=== PATIENT | female | born 1950 | race Caucasian/White ===

== ENCOUNTER 2017-05-05 09:28 | Observation (INO) ==
[2017-05-05] MEDS ORDERED: GI COCKTAIL 30 ML PO ONE (10:48)
[2017-05-05] MEDS ORDERED: NS 1,000 ML IV ONE (10:48)
[2017-05-05] MEDS ORDERED: KETOROLAC 30 MG/ML INJECTION IVP ONE (10:48)
[2017-05-05] MEDS: SALINE FLUSH 10ml SYRINGE IVF PRN ×3 (11:02→14:32)
[2017-05-05] MEDS ORDERED: IOHEXOL 300mg/ml 100ml INJECTION ONE (11:27)
[2017-05-05] MEDS ORDERED: NS 100 ML ONE (11:28)
[2017-05-05] MEDS ORDERED: SALINE FLUSH 10ml SYRINGE ONE ×2 (11:28→15:57)
[2017-05-05] MEDS ORDERED: HYDRALAZINE 20 MG/ML INJECTION IVP ONE (11:29)
[2017-05-05] MEDS ORDERED: METHYLPREDNISOLONE SOD SUCC 125mg/2ml INJECTION IVP ONE (11:34)
[2017-05-05] MEDS ORDERED: DiphenhydrAMINE 50 MG/ML INJECTION IVP ONE (11:35)
[2017-05-05] MEDS ORDERED: ONDANSETRON 4 MG/2 ML INJECTION IVP ONE (12:20)
--- NOTE | 2017-05-05 12:43 | CT Scan Report ---
Indication: Epigastric abdominal pain PROCEDURE: CT abdomen pelvis w con: Encounter: Initial Comparison: None Technique: Axial CT images were performed through the abdomen and pelvis after the administration of intravenous contrast. Coronal and sagittal two-dimensional reformats. Automated Exposure Control and Iterative Reconstruction dose reducing techniques were utilized. Contrast: Omnipaque 300 100 mL Findings: Mild scarring or fibrotic change in the lung bases. The liver is decreased in attenuation relative to the spleen consistent with fatty infiltration. No enhancing liver mass or bile duct dilatation. Numerous gallstones within the gallbladder with evidence of some gallbladder wall thickening or edema measuring up to 5 mm on axial image #28. Prominent gallstone in the gallbladder neck measuring 1 cm in size. The spleen, pancreas and adrenal glands are within normal limits. Small cyst in the right kidney. Kidneys are otherwise normal. No abdominal or pelvic lymphadenopathy. Bladder is normal. Uterus is absent. No free fluid. No evidence of a bowel obstruction. Colonic diverticulosis without evidence of acute diverticulitis. The appendix is normal. Bone windows show no acute findings. Impression: 1. Acute cholecystitis. 2. Hepatic steatosis. .
[2017-05-05] MEDS ORDERED: ERTAPENEM 1 G in NS 100 ML IV ONE (14:17)
--- NOTE | 2017-05-05 14:28 | Emergency Department Report ---
Abdominal Pain HPI - General Chief Complaint: Abdominal Pain Stated Complaint: High blood pressure/Stomach pain Time Seen by Provider: 05/05/17 10:43 - History of Present Illness HPI narrative: 66-year-old female presents with abdominal pain. Patient was seen couple of days ago in the ED with abdominal pain. She improved with GI cocktail. However she is worsened in the last day, feels like the pain is more intense and is centrally located. She's had no vomiting or diarrhea, but has had anorexia. Decreased fluid intake as well. - Related Data Home Medications Medication Instructions Recorded Confirmed Metformin HCl 500 mg PO BID #0 11/22/12 05/05/17 Potassium Chloride [Klor-Con M20] 20 meq PO DAILY PRN #0 06/18/13 05/05/17 Hydralazine HCl 50 mg PO TID #0 08/07/14 05/05/17 Cholecalciferol [Vit. D-3] 1,000 unit PO DAILY #0 11/26/15 05/05/17 Losartan Potassium 100 mg PO HS #0 tab 11/26/15 05/05/17 Furosemide 20 mg PO DAILY PRN #0 06/14/16 05/05/17 Lansoprazole [Prevacid] 15 mg PO DAILY #0 06/14/16 05/05/17 Atorvastatin [Lipitor] 10 mg PO HS 05/03/17 05/05/17 Carvedilol 3.125 mg PO BID 05/03/17 05/05/17 CALCIUM CARBONATE Chewable [Tums] 1,000 mg PO Q2H PRN 05/05/17 05/05/17 Escitalopram Oxalate 5 mg PO DAILY 05/05/17 05/05/17 Allergies Allergy/AdvReac Type Severity Reaction Status Date / Time amoxicillin Allergy Unknown Verified 05/05/17 09:42 Penicillins Allergy Unknown Verified 05/05/17 09:42 vancomycin Allergy Unknown Verified 05/05/17 09:42 Review of Systems All systems: reviewed and negative except as stated PFSH Patient Stated Medical History Cataracts Yes Hypertension Yes Peripheral Vascular Disease No Diabetes Mellitus Type 2 Yes - Social History Smoking status: Never smoker Substance use type: does not use Physical Exam - Limitations Limitations: no limitations - General General appearance: alert, other (definite pain) - Normal Exams: Head:: Normocephalic without trauma Chest/Respirations:: Clear all ken[place], with good airflow, and symmetry bilaterally Cardiovascular:: Regular rate and rhythm, without murmur or gallop, Pulses 2+ all extremities, capillary refill, <2 seconds all extremities Abdomen:: Bowel sounds positive Musculoskeletal:: No tenderness, or deformity noted, good range of motion, all extremities Neurological:: Patient is alert, and oriented, cranial nerves, motor/sensory/ cerebellar, exams w/o gross deficits, to observation Psychiatric:: Patient exhibits, appropriate attention, emotion and affect - Abdominal Exam Abdominal exam: Present: soft, tenderness (midepigastric, right upper quadrant) , normal bowel sounds. Absent: guarding, rebound, rigidity Abdominal tenderness: Present: RUQ, epigastrium Course Vital Signs Blood Pressure 207/88 H 05/05/17 09:30 Temperature 97.8 F 05/05/17 09:42 Pulse Rate 98 05/05/17 12:15 Respiratory Rate 25 H 05/05/17 12:15 Blood Pressure 198/85 H 05/05/17 12:15 Pulse Oximetry 98 05/05/17 12:15 Abdominal Pain - MDM Narrative Medical decision making narrative: White count returns appropriate, patient has an elevated lipase in the 700s as well as bilirubin of 1.4. Lactate is negative. CT scan of abdomen shows gallstones with inflamed gallbladder but no dilation of ducts. I spoke with Dr. Jaime, who felt that she is a likely candidate for cholecystectomy. Hospitalist will admit her with a dose of Invanz IV. She is made nothing by mouth and will be scheduled for surgery later today. - Lab Data Result diagrams: 05/05/17 10:52 05/05/17 10:52 Lab Results 05/05/17 05/05/17 05/05/17 Range/Units 10:52 10:52 12:13 WBC 7.2 (4.5-11.0) T/MM3 RBC 4.76 (4.00-5.20) M/MM3 Hgb 14.1 (12-16) GM/DL Hct 42.7 (36-46) % MCV 89.7 (80-100) UM3 MCH 29.6 (26-34) UUG MCHC 33.0 (31-37) GM/DL RDW Std Deviation 41.7 (36.9-50.2) FL Plt Count 243 (130-400) T/MM3 MPV 11.1 (9.4-12.4) UM3 Immature Gran % (Auto) 0.1 (0.0-0.5) % Neut % (Auto) 69.0 H (33-66) % Lymph % (Auto) 22.8 L (23-45) % [place] % (Auto) 6.0 (0-9.0) % Eos % (Auto) 1.8 (0-4) % Baso % (Auto) 0.3 (0-2) % Neut # 4.9 (1.8-7.7) T/MM3 Lymph # 1.6 (1-4.8) T/MM3 [place] # 0.4 (0-0.8) T/MM3 Eos # 0.1 (0-0.5) T/MM3 Baso # 0.0 (0-0.2) T/MM3 Abs Immat Gran (auto) 0.01 (0.00-0.03) T/MM3 Turbidity < 20 (0-20) Sodium 138 (134-144) MEQ/L Potassium 4.1 (3.6-5) MEQ/L Chloride 102 (98-107) MEQ/L Carbon Dioxide 27 (22-30) MEQ/L Anion Gap 9 (5-15) MEQ/L BUN 19.0 H (7-17) MG/DL Creatinine 0.7 (0.7-1.2) MG/DL GFR Calculation 83 BUN/Creatinine Ratio 27 H (6-26) RATIO Glucose 232 H (65-110) MG/DL Calculated Osmolality 275 (261-280) MOSM/KG Calcium 10.2 (8.4-10.2) MG/DL Total Bilirubin 1.40 H (0.20-1.30) MG/DL Icterus Index < 2 (0-7) AST 24 (14-36) U/L ALT 47 (9-52) U/L Alkaline Phosphatase 103 (38-126) U/L Troponin I < 0.012 (0-0.12) ng/ml Total Protein 6.9 (6.3-8.2) G/DL Albumin 4.3 (3.5-5.0) G/DL Globulin 2.6 (2.4-3.6) G/DL Albumin/Globulin Ratio 1.7 (1.1-2.2) RATIO Lipase 716 H (23-300) U/L Plasma Lactate 1.5 (0.6-2.2) MMOL/L Specimen Hemolysis < 15 (0-25) Ur Collection Type Urine, clean catch Urine Color Yellow (YELLOW) Urine Clarity Sl cloudy Urine pH 7.5 (5.0-8.0) Ur Specific [place] 1.015 (1.015-1.025) Urine Protein Negative (NEGATIVE) Urine Glucose (UA) Negative (NEGATIVE) Urine Ketones Negative (NEGATIVE) Urine Occult Blood Negative (NEGATIVE) Urine Nitrate Negative (NEGATIVE) Urine Bilirubin Negative (NEGATIVE) Urine Urobilinogen 1.0 (NORMAL) EU/DL Ur Leukocyte Esterase Trace A (NEGATIVE) Urinalysis Comment Microscopic not ind. Disposition Clinical Impression: Cholecystitis [place] [facility] [place]: Stable Prescriptions: No Action Metformin HCl 500 mg PO BID #0 Potassium Chloride [Klor-Con M20] 20 meq PO DAILY PRN #0 PRN Reason: Prn Orders Hydralazine HCl 50 mg PO TID #0 Cholecalciferol [Vit. D-3] 1,000 unit PO DAILY #0 Losartan Potassium 100 mg PO HS #0 tab Furosemide 20 mg PO DAILY PRN #0 PRN Reason: Prn Orders Escitalopram Oxalate 5 mg PO DAILY CALCIUM CARBONATE Chewable [Tums] 1,000 mg PO Q2H PRN PRN Reason: Prn Orders Lansoprazole [Prevacid] 15 mg PO DAILY #0 Atorvastatin [Lipitor] 10 mg PO HS Carvedilol 3.125 mg PO BID Referrals: Jackie Portillo [Other] Time of Disposition: 14:45 - Seen By: physician
[2017-05-05] MEDS ORDERED: HYDROMORPHONE 2 MG/ML INJECTION IVP PRN (14:45)
[2017-05-05] MEDS ORDERED: ONDANSETRON 4 MG/2 ML INJECTION IVP PRN (14:45)
[2017-05-05] MEDS ORDERED: CALCIUM CARBONATE Chewable 500mg TABLET PO PRN (14:52)
[2017-05-05] MEDS ORDERED: FUROSEMIDE 20 MG TABLET PO PRN (14:52)
[2017-05-05] MEDS: NS 1,000 ML IV SCH ×3 (15:03→23:11)
--- NOTE | 2017-05-05 15:08 | History & Physical Report ---
<LaithkathiRylie Cindy - Last Filed: 05/05/17 14:58> History of Present Illness Date: 05/05/17 Chief complaint: cholecystitis HPI: Kristine Foreman is a very pleasant 66-year-old female who presented to [facility] ED for evaluation of epigastric abdominal pain. She reports that on 05/03 she was awakened by severe epigastric pain that was colicky in nature but had a continual ache. She was seen and evaluated in the ED on 05/03/17 and had relief from her pain after drinking a GI cocktail. She also reports that she underwent cataract surgery on 05/03/17 and following her surgery, she took pain medication. In retrospect, she now believes the improvement in her pain was partly related to her pain medication that she took following her surgery. She states that she felt fine yesterday, but started to have severe pain again today. She denies any fevers but admits to sweating when her pain was severe followed by chills. She also reports nausea without vomiting. She denies any chest pain, shortness of breath, radiation of the pain, dysuria, hematuria, diarrhea or constipation. Upon arrival to the ED, she was afebrile and noted to be significantly hypertensive, most likely secondary to her severe pain. Labs were obtained and revealed WBC 7.2, hemoglobin 14.1, platelets 243, sodium 138, potassium 4.1, BUN 19, SCr 0.7 and hyperglycemia with glucose 232. She has a known history of diabetes for which she takes metformin. Total bilirubin was elevated at 1.4. LFTs were within normal limits. Lipase was elevated at 716 and lactate was 1.5. CT abdomen/pelvis revealed acute cholecystitis and hepatic steatosis. Due to her acute cholecystitis, Dr. Rolon was consulted and she was admitted to surgical observation and Dr. Jaime was consulted for surgical evaluation and anticipated surgery. While in the ED, she received 1L NS and Ertapenem for empiric coverage of GI pathogens. On exam, she is seen immediately upon her arrival to her room, #[id number]. Her of 52 years is at the bedside. She is alert and orientated and in no apparent distress. She is noted to be slightly hard of hearing. 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 Lungs are clear to auscultation bilaterally. Abdomen is soft with hypoactive bowel sounds. No edema noted to lower extremities. Review of Systems All systems: reviewed and no additional remarkable complaints except as stated - Constitutional Constitutional: Present: chills. Absent: fever(s), increased appetite, night sweats - EENMT Eyes: Absent: blurry vision, change in vision, photophobia Balance: Absent: falling to one side Nose: Absent: nosebleeds Mouth/Throat: Absent: sore throat, changes in swallowing - Cardiovascular Cardiovascular: Present: heart murmur. Absent: chest pain, palpitations, syncope, dyspnea on exertion, edema Rhythm: Present: regular rhythm Vascular: Absent: pallor of an extermity, pedal edema - Respiratory Respiratory: Absent: cough, dyspnea, dyspnea on exertion, wheezing, chest congestion - Gastrointestinal Gastrointestinal: Present: abdominal pain, nausea. Absent: coffee ground emesis , diarrhea, dysphagia, hematemesis, vomiting - Genitourinary Genitourinary: Absent: dysuria, hematuria - Musculoskeletal Musculoskeletal: Absent: deformity, limited range of motion, muscle weakness, neck pain - Integumentary/Breasts Integumentary: Absent: erythema, lesions, rash, swelling, jaundice - Neurological Neurological: Absent: abnormal speech, dizziness, focal weakness, headache(s), loss of vision, memory loss - Psychiatric Psychiatric: Present: depression. Absent: auditory hallucinations, visual hallucinations - Endocrine Endocrine: Absent: excessive sweating, palpitations - Hematologic/Lymphatic Hematologic/Lymphatic: Absent: easy bleeding, easy bruising PFSH Diabetes, type 2. Hypertension. Dyslipidemia. GERD. Depression. Obesity. Cataracts. Mir's anomaly (congenital heart defect). Surgical History: Tonsillectomy. Cataract removal, bilateral - 2017. Bilateral tubal ligation. Hysterectomy - 2004. Tricuspid valve replacement - 2006. Family History: Mother, . Alport's disease, renal failure. Father, . Hypertension, kidney disease. Cousin, . Pancreatic cancer. - Social History Smoking status: Never smoker Substance use type: does not use Alcohol intake frequency: holidays/special occasions only Housing: house Household members: spouse service: No Current occupational status: retired Current residence: Apartment/Private Home Social history: PCP - Dr. Portillo. Medications Home Medications Medication Instructions Recorded Confirmed Type Metformin HCl 500 mg PO BID #0 11/22/12 05/05/17 History Potassium Chloride [Klor-Con M20] 20 meq PO DAILY PRN #0 06/18/13 05/05/17 History Hydralazine HCl 50 mg PO TID #0 08/07/14 05/05/17 History Cholecalciferol [Vit. D-3] 1,000 unit PO DAILY #0 11/26/15 05/05/17 History Losartan Potassium 100 mg PO HS #0 tab 11/26/15 05/05/17 History Furosemide 20 mg PO DAILY PRN #0 06/14/16 05/05/17 History Lansoprazole [Prevacid] 15 mg PO DAILY #0 06/14/16 05/05/17 History Atorvastatin [Lipitor] 10 mg PO HS 05/03/17 05/05/17 History Carvedilol 3.125 mg PO BID 05/03/17 05/05/17 History CALCIUM CARBONATE Chewable [Tums] 1,000 mg PO Q2H PRN 05/05/17 05/05/17 History Escitalopram Oxalate 5 mg PO DAILY 05/05/17 05/05/17 History Allergies Allergy/AdvReac Type Severity Reaction Status Date / Time amoxicillin Allergy Unknown Verified 05/05/17 09:42 Penicillins Allergy Unknown Verified 05/05/17 09:42 vancomycin Allergy Unknown Verified 05/05/17 09:42 Exam Vital Signs: Temperature 97.8 F 05/05/17 09:42 Pulse Rate 98 05/05/17 12:15 Respiratory Rate 25 H 05/05/17 12:15 Blood Pressure 198/85 H 05/05/17 12:15 Pulse Oximetry 98 05/05/17 12:15 Height: 5 ft Weight: 171 lb 15.369 oz - Constitutional Present: no acute distress, well nourished, well developed, obese, cooperative - Routine HEENT Exam Head: Present: normocephalic, atraumatic Eye: Absent: conjunctival icterus, scleral injection Comments: hard of hearing. - Routine Neck Exam Present: supple, full ROM, trachea midline - Routine Chest/Breast/Axilla Exam Chest wall: Absent: tenderness - Routine Respiratory Exam Present: CTA bilaterally. Absent: accessory muscle use, dyspnea, rhonchi, stridor, wheezes, crackles - Routine Cardiovascular Exam Present: RRR, S1, S2, murmur (tricuspid valve) - Routine Abdominal Exam Present: soft, normoactive bowel sounds, tenderness. Absent: firm, rigid - Routine Extremities Exam Present: no edema, non tender, full ROM, pulses intact. Absent: cyanosis, calf tenderness - Routine Back/Spine/Pelvis Exam Back/Spine: Present: full ROM. Absent: vertebral tenderness - Routine Skin Exam Present: intact, dry, warm. Absent: cyanosis, erythema, jaundice, rash - Routine Neurological Exam Present: alert, oriented X3, moving all extremities, normal tone, normal speech. Absent: motor deficit, altered mental status, facial asymmetry - Routine Psychiatric Exam Present: normal affect, cooperative Results - Labs CBC & Chem 7: 05/05/17 10:52 05/05/17 10:52 Assessment and Plan (1) Cholecystitis Current visit: Yes Status: Acute (2) Diabetes Current visit: Yes Status: Chronic (3) Hypertension Current visit: Yes Status: Chronic (4) Dyslipidemia Current visit: Yes Status: Chronic (5) GERD (gastroesophageal reflux disease) Current visit: Yes Status: Chronic (6) Depression Current visit: Yes Status: Chronic (7) Obesity (BMI 30.0-34.9) Current visit: Yes Status: Chronic DVT Prophylaxis: SCD's GI Prophylaxis: other (prevacid) Assessment and Plan: -Acute cholecystitis, present on admission. .Admit to hospitalist service under the care of Dr. Heaton. .Consult Dr. Jaime for surgical evaluation and expected cholecystectomy. .Keep patient NPO in anticipation of upcoming surgery. NS 75cc/hr for hydration. Monitor closely for fluid overload. .Labs on admission revealed elevated lipase at 716 and elevated total bilirubin at 1.4. Recheck CBC, CMP and lipase in AM to monitor trends. LFT within normal limits on admission. .Dilaudid as needed for pain control and zofran as needed for nausea/ vomiting. .Encourage incentive spriometry for pulmonary toileting. .CT abdomen/pelvis revealed acute cholecystitis adn hepatic steatosis. -Diabetes, type 2, chronic. .Will hold home metformin in anticipation of surgery. Monitor BGMs closely. Sliding scale insulin as indicated for hyperglycemia. .Currently patient is NPO. .Will check A1c in AM. -Hypertension, uncontrolled, chronic. .Continue home medications including lasartan, lasix, KCl and carvedilol for blood pressure control. .Monitor blood pressure closely and monitor telemetry closely. As patient is NPO, patient may require metoprolol IV if blood pressure remains elevated. -Dyslipidemia, chronic. .In light of current cholecystitis, will hold home atorvastatin. Monitor liver function tests closely. -GERD, chronic. .Continue home Prevacid and tums as needed. -Depression, chronic. .Continue home lexapro. -Obesity, chronic. Upon discharge, patient's care will be returned to her PCP. Hospital Course Summary Disclaimer: The visit summary below is not to be considered part of the above Progress Note. Hospital Course: 05/05/17 15:46 -Acute cholecystitis, present on admission. .Admit to hospitalist service under the care of Dr. Heaton. .Consult Dr. Jaime for surgical evaluation and expected cholecystectomy. .Keep patient NPO in anticipation of upcoming surgery. NS 75cc/hr for hydration. Monitor closely for fluid overload. .Labs on admission revealed elevated lipase at 716 and elevated total bilirubin at 1.4. Recheck CBC, CMP and lipase in AM to monitor trends. LFT within normal limits on admission. .Dilaudid as needed for pain control and zofran as needed for nausea/ vomiting. .Encourage incentive spriometry for pulmonary toileting. .CT abdomen/pelvis revealed acute cholecystitis adn hepatic steatosis. -Diabetes, type 2, chronic. .Will hold home metformin in anticipation of surgery. Monitor BGMs closely. Sliding scale insulin as indicated for hyperglycemia. .Currently patient is NPO. .Will check A1c in AM. -Hypertension, uncontrolled, chronic. .Continue home medications including lasartan, lasix, KCl and carvedilol for blood pressure control. .Monitor blood pressure closely and monitor telemetry closely. As patient is NPO, patient may require metoprolol IV if blood pressure remains elevated. -Dyslipidemia, chronic. .In light of current cholecystitis, will hold home atorvastatin. Monitor liver function tests closely. -GERD, chronic. .Continue home Prevacid and tums as needed. -Depression, chronic. .Continue home lexapro. -Obesity, chronic. Upon discharge, patient's care will be returned to her PCP. <Justen Heaton - Last Filed: 05/05/17 16:38> History of Present Illness Date: 05/05/17 [facility] Patient Stated Medical History Cataracts Yes: catarats removed 05/03/2017 Hearing Loss Yes: has hearing aids Cardiac Arrhythmia Yes Hypertension Yes Other Cardiology Yes: Dr. Blum is cardilogist, seen in March, chest pain from time to time, Diabetes Mellitus Type 1 Yes Diabetes Mellitus Type 2 Yes: does not check bs at home Hx Urinary Tract Infection Yes Other Musculoskeletal Yes: pain on her shoulders. Exam Vital Signs: Temperature 96.3 F L 05/05/17 15:03 Pulse Rate 82 05/05/17 15:50 Respiratory Rate 16 05/05/17 15:50 Blood Pressure 157/81 H 05/05/17 15:03 Pulse Oximetry 97 05/05/17 15:50 Oxygen Delivery Method Room Air Height: 1.63 m Weight: 79.4 kg Results - Labs CBC & Chem 7: 05/05/17 10:52 05/05/17 10:52 Assessment and Plan (1) Cholecystitis Current visit: Yes Status: Acute (2) Diabetes Current visit: Yes Status: Chronic (3) Hypertension Current visit: Yes Status: Chronic (4) GERD (gastroesophageal reflux disease) Current visit: Yes Status: Chronic (5) Dyslipidemia Current visit: Yes Status: Chronic (6) Depression Current visit: Yes Status: Chronic (7) Obesity (BMI 30.0-34.9) Current visit: Yes Status: Chronic Assessment and Plan: Have independently interviewed and examined pt. Chart reviewed. Case discussed with ED physician and my PA. Care plan developed with my supervision; agree with above. CC: ab pain HPI: 66 y/o female presents to ED with ab pain. Seen in ED recently with similar symptoms-treated with GI cocktail and pain did improve. Notes pain in upper ab to right of midline-very sharp and stabbing. 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 No radiation of pain. Decreased appetite for past 2 days. Pain does not increase with eating. Notes increased nausea and BP when pain occurs. Bowels stable without diarrhea. Breathing well without SOA, cough or congestion. Does note when ab pain comes on, she finds it hard to breath as deep breathing increases her pain. With pain will feel sweaty and then chilled. No increased edema. Not noting check pressure or heaviness. Lungs: clear - no distress on RA CV: regular AB: soft nd, Mild tenderness to RUQ (recently had pain medication), BS decreased EXT: SCD present bilaterally MSE: awake alert appropriate. Thoughts linear. Lab: reviewed CT: reviewed Plan: OBS due to acute cholecysitis. Consult with Dr Jaime for surgical evaluation. Will have pt NPO for bowel rest, hope for surgical intervention this afternoon. IVF for hydration. Dilaudid and Zofran for symptom control. SCD for DVT prevention. Monitor sugars due to DM. IS for pulmonary toilet. Monitor lab. Hospital Course Summary Disclaimer: The visit summary below is not to be considered part of the above Progress Note.
--- NOTE | 2017-05-05 15:51 | Anesthesia Preoperative Report ---
Anesthesia Preoperative Record - Date and Time Date: 05/05/17 Preoperative Diagnosis: High blood pressure/Stomach pain cholelitiasis Proposed Procedure: robotic assisted lap freddy NPO Since Date: 05/04/17 NPO Since Time: 23:00 Allergies/Adverse Reactions: Allergies Allergy/AdvReac Type Severity Reaction Status Date / Time amoxicillin Allergy Unknown Verified 05/05/17 09:42 Penicillins Allergy Unknown Verified 05/05/17 09:42 vancomycin Allergy Unknown Verified 05/05/17 09:42 - Vital Signs Vital Signs: Temperature 96.3 F L 05/05/17 15:03 Pulse Rate 82 05/05/17 15:13 Respiratory Rate 16 05/05/17 15:03 Blood Pressure 157/81 H 05/05/17 15:03 Pulse Oximetry 97 05/05/17 15:03 Oxygen Delivery Method Room Air Height and Weight: Height 1.63 m Weight 79.4 kg Body Mass Index 30.0 - Medications Inpatient Medications: Current Medications Calcium Carbonate (Tums) 1,000 mg PO Q2H PRN PRN Reason: PRN orders Carvedilol (Coreg) 3.125 mg PO BIDWM BEBA Escitalopram Oxalate (Lexapro) 5 mg PO DAILY BEBA Furosemide (Lasix) 20 mg PO DAILY PRN PRN Reason: PRN orders Hydralazine HCl (Apresoline) 50 mg PO TID BEBA Hydromorphone HCl (Dilaudid) 0.5 mg IVP Q3H PRN PRN Reason: Pain Sodium Chloride (Normal Saline) 1,000 mls @ 75 mls/hr IV .[id number] BEBA Last Admin: 05/05/17 15:03 Dose: 75 mls/hr Insulin Aspart (Novolog) 0 unit SQ SS PRN; Protocol PRN Reason: Hyperglycemia Lansoprazole (Prevacid Solu-Tab) 15 mg PO ACB BEBA Losartan Potassium (Cozaar) 100 mg PO HS BEBA Ondansetron HCl (Zofran) 4 mg IVP Q6H PRN PRN Reason: Nausea Potassium Chloride (K-Dur) 20 meq PO DAILY PRN PRN Reason: PRN orders Sodium Chloride (Iv Flush) 10 ml IVF PRN PRN PRN Reason: Flushing Last Admin: 05/05/17 14:32 Dose: 10 ml Home Medications: Home Medications Medication Instructions Recorded Confirmed Type Metformin HCl 500 mg PO BID #0 11/22/12 05/05/17 History Potassium Chloride [Klor-Con M20] 20 meq PO DAILY PRN #0 06/18/13 05/05/17 History Hydralazine HCl 50 mg PO TID #0 08/07/14 05/05/17 History Cholecalciferol [Vit. 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, seen in March, chest pain from time to time, ) Renal/Endocrine: Reports: Diabetes Mellitus Type 1, Diabetes Mellitus Type 2 ( does not check bs at home ) Anesthesia Reactions: other (memory issues after heart drained ) - Surgical History HEENT Surgeries: Reports: Tonsillectomy (2006), Other (L CATARACT) Cardiac Surgeries/Treatments: Reports: Valve Replacement (2006, valve only an [facility]) Comment Only: Other (tricuspid valve replacement) Respiratory Surgery/Treatments: Reports: Chest Surgery (drained from heart 3 months after heart surg ) GI Surgery/Treatments: Reports: Appendectomy Reproductive Surgery/Treatment: Reports: Hysterectomy, Tubal Ligation - Social History Smoking Status: Never smoker Substance Use Type: does not use Alcohol Intake Frequency: holidays/special occasions only - Physical Exam Respiratory Exam: Present: lungs clear, bilateral breath sounds equal Cardiovascular Exam: Present: regular rate and rhythm - Airway Assessment Mallampati Score: III TMD: 2 Fingerbreadths Neck Extension: fair Overall Assessment: may be difficult intubation - ASA ASA Score: 3 - Plan Anesthesia: General Inhalation Gases - Discussion Discussion: Discussed risks/options/alternatives of anesthesia and questions answered. Patient consents. Nursing pain assessment noted. Attestation Statement: Prior to the delivery of any anesthetic medication, I examined the patient, developed the plan, obtained the patient's consent and discussed the risk and benefits of the procedure with the patient/guardian.
[2017-05-05] MEDS ORDERED: INDOCYANINE GREEN 25mg INJECTION ONE (15:56)
[2017-05-05] MEDS ORDERED: BUPIVACAINE 0.25% (2.5mg/ml) PF 30ml INJECTION ONE (15:56)
--- NOTE | 2017-05-05 16:23 | Anesthesia Postoperative Note ---
- Date and Time Date: 05/05/17 Time: 16:22 - Status Patient Participated in Evaluation: Patient Participated in Person Vital Signs: Temperature 96.3 F L 05/05/17 15:03 Pulse Rate 82 05/05/17 15:50 Respiratory Rate 16 05/05/17 15:50 Blood Pressure 157/81 H 05/05/17 15:03 Pulse Oximetry 97 05/05/17 15:50 Oxygen Delivery Method Room Air Respiratory Function: Airway Patent EKG Rhythm: Normal Sinus Rhythm Mental Status: Alert and Oriented Pain Intensity: 0 Hydration: IV Infusing Complications During Recover: None Apparent - Follow-Up Instructions Instructions: Per Surgeon
[2017-05-05] MEDS: CARVEDILOL 3.125 MG TABLET PO SCH (17:52)
[2017-05-05] MEDS ORDERED: LIDOCAINE 2% (100mg/5mL) PF 5ml vl ONE (18:07)
[2017-05-05] MEDS ORDERED: ROCURONIUM 50 MG/5 ML INJECTION IVP ONE (18:07)
[2017-05-05] MEDS ORDERED: PROPOFOL 20 ML ONE (18:07)
[2017-05-05] MEDS ORDERED: INDOCYANINE GREEN 25mg INJECTION IVP ONE ×2 (18:10)
[2017-05-05] MEDS ORDERED: SALINE FLUSH 10ml SYRINGE IV ONE (18:10)
[2017-05-05] MEDS ORDERED: FentaNYL 100 MCG/2 ML INJECTION ONE (18:12)
[2017-05-05] MEDS ORDERED: DEXAMETHASONE 4 MG/ML INJECTION ONE (18:27)
[2017-05-05] MEDS ORDERED: ONDANSETRON 4 MG/2 ML INJECTION ONE (18:27)
[2017-05-05] MEDS ORDERED: KETOROLAC 30 MG/ML INJECTION ONE (18:27)
[2017-05-05] MEDS ORDERED: HYDROMORPHONE 2 MG/ML INJECTION ONE (18:54)
[2017-05-05] MEDS ORDERED: NEOSTIGMINE 10 MG/10 ML INJECTION ONE (19:35)
[2017-05-05] MEDS ORDERED: GLYCOPYRROLATE 0.4 MG/2 ML INJECTION ONE (19:35)
[2017-05-05] MEDS ORDERED: EPHEDRINE 50mg/ml INJECTION ONE (19:44)
--- NOTE | 2017-05-05 19:55 | General Surgery Procedure Note ---
Date of Procedure: 05/05/17 Surgeon: Addison Postoperative Diagnosis: Acute cholecystitis,cholelithiasis,cirrhosis Procedure: Robotic laparoscopic cholecystectomy and needle biopsies of liver Estimated Blood Loss: See Anesthesia Record.
[2017-05-05] MEDS ORDERED: IBUPROFEN 200 MG TABLET PO PRN (20:42)
[2017-05-05] MEDS ORDERED: MORPHINE SULFATE 10 MG SYRINGE IV PRN (20:42)
--- NOTE | 2017-05-05 21:51 | Anesthesia Postoperative Note ---
- Date and Time Date: 05/05/17 Time: 21:50 - Status Patient Participated in Evaluation: Patient Participated in Person Vital Signs: Temperature 97.4 F 05/05/17 20:09 Pulse Rate 83 05/05/17 21:10 Respiratory Rate 17 05/05/17 21:10 Blood Pressure 129/60 05/05/17 21:10 Pulse Oximetry 99 05/05/17 21:10 Oxygen Delivery Method Nasal Cannula Oxygen Flow Rate 2 Respiratory Function: Airway Patent Cardiovascular Function: Regular Pulse Mental Status: Alert and Oriented Pain Intensity: 0 Hydration: Taking PO Fluids Complications During Recover: None Apparent - Follow-Up Instructions Instructions: Per Surgeon
[2017-05-05] MEDS ORDERED: LOSARTAN 100 MG TABLET PO SCH (22:00)
[2017-05-05] MEDS: INSULIN ASPART 100unit/ml INJECTION SQ PRN (23:09)
[2017-05-05] MEDS: HYDRALAZINE 25 MG TABLET PO SCH (23:10)
[2017-05-06] MEDS: Oxycodone *IR* 5 MG TABLET PO PRN ×2 (03:21→12:31)
[2017-05-06] MEDS ORDERED: LANSOPRAZOLE SOLU-TAB 15 MG TABLET PO SCH (06:30)
--- NOTE | 2017-05-06 06:53 | Consultation ---
DATE OF CONSULTATION 05/05/2017 HISTORY OF PRESENT ILLNESS This patient is 66 years old. She has been having some epigastric abdominal pain for the last couple of days. She was seen in the emergency room a couple of days ago. Her epigastric abdominal pain improved with use of a GI cocktail at that time. The pain then recurred. She did come back to [facility] Emergency Room again today with persistent epigastric abdominal pain. She has had no vomiting. She has had no diarrhea. She has had some anorexia. The patient did undergo evaluation at [facility] Emergency Room with a CT scan of the abdomen and pelvis which does show acute cholecystitis. PHYSICAL EXAMINATION VITAL SIGNS: Temperature is 96.3 degrees oral. Pulse is 82. Respiratory rate is 16. Blood pressure is 157/81. Oxygen saturation is 97% on room air. Height is 1.63 meters. Weight is 79.4 kg. BMI is 30 kg/m2. ABDOMEN: The abdomen is soft. There is some mild epigastric and right upper quadrant abdominal tenderness. No abdominal masses. LABORATORY DATA White blood cell count is 7200 with no bands. Total bilirubin is 1.4. AST is 24. ALT is 47. Alkaline phosphatase is 103. Serum lipase is 716. IMAGING DATA This patient did have a CT scan of the abdomen and pelvis with IV contrast performed on 05/05/2017 at [facility] today. This does show numerous gallstones within the gallbladder. There is one prominent gallstone measuring 1 cm in size which appears to be impacted in the neck of the gallbladder. There is some gallbladder wall thickening and edema. The gallbladder wall is up to 5 mm in thickness. There is no bile duct dilation anywhere. Liver appears normal. Impression by the radiologist was acute cholecystitis and hepatic steatosis. IMPRESSION 1. Acute cholecystitis and cholelithiasis. 2. Hepatic steatosis demonstrated on 05/05/2017 CT scan of the abdomen and pelvis. 3. Mild elevation of serum lipase. RECOMMENDATION Multiport robotic laparoscopic cholecystectomy. PATIENT EDUCATION I did talk with the patient and her about undergoing a multiport robotic laparoscopic cholecystectomy operation. The nature this procedure was explained step by step. Expected benefits were reviewed. Alternatives were reviewed. Potential risks and complications were also reviewed including anesthetic risk, cardiac risk, bleeding, infection, poor wound healing and injury to intraabdominal structures such as the liver, the common duct, the duodenum and loops of large and small intestine. Questions were solicited from the patient and her . All their questions were answered. The patient does wish to proceed. MTDD
[2017-05-06] MEDS: INSULIN ASPART 100unit/ml INJECTION SQ PRN ×2 (07:02→12:31)
[2017-05-06] MEDS: HYDRALAZINE 25 MG TABLET PO SCH ×2 (08:07→14:34)
[2017-05-06] MEDS: CARVEDILOL 3.125 MG TABLET PO SCH (08:07)
[2017-05-06] MEDS ORDERED: ESCITALOPRAM 10 MG TABLET PO SCH (09:00)
--- NOTE | 2017-05-06 11:20 | Operative Note ---
DATE OF OPERATION 05/05/2017 PREOPERATIVE DIAGNOSES 1. Acute cholecystitis and cholelithiasis. 2. Hepatic steatosis demonstrated on 05/05/2017 CT scan of the abdomen and pelvis. 3. Mild elevation of serum lipase. POSTOPERATIVE DIAGNOSES 1. Acute cholecystitis and cholelithiasis. 2. Mild elevation of serum lipase. 3. Cirrhosis. OPERATION Multiport robotic laparoscopic cholecystectomy and needle biopsies of the liver. SURGEON Dr. Jaime ANESTHESIA General ASA CLASS 3 FINDINGS The gallbladder appeared be acutely inflamed. The gallbladder was thickened and was quite edematous. The gallbladder did contain multiple gallstones. The gallbladder was filled with gallstones. The liver did have a nodular appearance which was consistent in appearance with cirrhosis. There were no focal lesions at the liver. The nodularity was a diffuse nodularity throughout the liver. The stomach appeared normal. Loops of intestine which were visualized appeared normal.. DESCRIPTION OF OPERATION The patient did have injectable indocyanine green dye administered intravenously preoperatively. The patient was placed in supine position on the operating table. General anesthesia was satisfactorily induced. The abdomen was prepped and draped in routine sterile fashion. Bupivacaine 0.25% without epinephrine was infiltrated into the skin and underlying tissue at an infraumbilical incision site. An infraumbilical incision was made. A Veress needle was inserted into the peritoneal cavity through the incision. Pneumoperitoneum was established with carbon dioxide. The Veress needle was removed. A 12 mm da Evelyn camera port was placed at the infraumbilical incision. A 12-mm 30-degree da Evelyn laparoscope was inserted at the infraumbilical port. The skin and underlying structures at the abdominal wall were infiltrated with bupivacaine at a port site at the left upper quadrant of the abdomen at the midclavicular line. An incision was made at this site and an 8 mm da Evelyn instrument port was placed at this incision. The skin and underlying abdominal wall structures were infiltrated with bupivacaine at another incision site at the left side of the abdomen. An incision was made at this site and an AirSeal system business office assistant port was placed at this incision. The skin and underlying abdominal wall structures were infiltrated with bupivacaine at a port site at the right upper quadrant of the abdomen. An incision was made at this area and an 8 mm da Evelyn instrument port was placed at this incision. The skin and underlying abdominal wall structures were infiltrated with bupivacaine at another port site at a more lateral location at the right side of the abdomen. An incision was made at this site and another 8 mm da Evelyn instrument port was placed at this incision. The patient was placed in reverse Trendelenburg position. The right side of the table was tilted up. The da Evelyn robotic system was brought up to the operating table. The da Evelyn robotic system was docked to the camera port and the instrument ports. The da Evelyn 12 mm 30-degree laparoscope was inserted at the camera port. The [place] bipolar forceps was inserted at the 8 mm instrument port at the left upper quadrant of the abdomen associated with instrument arm #1. A Cadiere forceps was inserted at the 8 mm instrument port at the right upper quadrant of the abdomen associated with instrument arm #2. A ProGrasp forceps was inserted at the 8 mm instrument port at the right lateral location at the abdomen associated with instrument arm #3. These instruments were all placed into a position adjacent to the gallbladder. The surgeon then went from the patient's side at the operating table to the surgeon console. The ProGrasp forceps with instrument arm #3 was used to grasp the fundus of the gallbladder and elevate the gallbladder and reflect the liver up superiorly towards the right diaphragm. The infundibulum of the gallbladder was grasped with a Cadiere forceps with instrument arm #2. Dissection was performed at the hepatocystic triangle. The cystic artery was dissected out and identified. The cystic duct was dissected out and identified. The cystic duct was demonstrated with Firefly fluorescence imaging at this time. Dissection was performed at the hepatocystic triangle until the only two structures remaining were the cystic duct and cystic artery. A critical view of safety was achieved at this time. The hepatocystic triangle was cleared of all the fatty and fibrous tissue until the only two structures remaining were the cystic duct and cystic artery. Three of the Hem-o-artemio clips were applied to the cystic duct at the junction of the cystic duct and the gallbladder. The cystic duct was divided between the Hem-o-artemio clips with the curved dissecting scissors. Two of the Hem-o-artemio clips were left in place on the cystic duct stump. Two of the Hem-o-artemio clips were then applied to the cystic artery. The cystic artery was divided between the Hem-o-artemio clips with the monopolar curved scissors. The monopolar curved scissors was then used to dissect the gallbladder out of the gallbladder bed. Tissue was coagulated with the monopolar curved scissors as the gallbladder was being dissected out of the gallbladder bed to maintain hemostasis. The gallbladder was completely dissected out of the gallbladder bed. There was very little bleeding from the gallbladder bed during all this time. Hemostasis was satisfactory at the gallbladder bed. The surgeon then left the surgeon console and returned back to the side of the patient at the operating table. An area at the lateral aspect of the right subcostal area was infiltrated with bupivacaine to provide local anesthesia. A small incision was made at this area. A Jorgito-Cut biopsy needle device was introduced through this small incision at the lateral aspect of right subcostal area. The Jorgito-Cut biopsy needle was used to obtain three needle biopsy specimens from the liver. These were obtained from a location along the margin of the liver to the right side of the gallbladder bed. The needle biopsy specimens from the liver were placed on a piece of Telfa and all submitted together for study by the pathologist. The bleeding at the needle biopsy sites was minimal. The surgeon did then leave the patient's side at the operating table and return back to the surgeon console. The monopolar curved scissors was used to coagulate the needle biopsy sites at the surface of the liver. Irrigation was performed at this time at the subhepatic space. Irrigation was performed at the gallbladder bed. Hemostasis remained satisfactory at the gallbladder bed. Hemostasis remained satisfactory at the needle biopsy sites. The surgeon then left the surgeon console and returned back to the side of the patient at the operating table. The da Evelyn 8.5 mm 30-degree laparoscope was inserted at one of the right-sided da Evelyn instrument ports. The specimen retrieval pouch was inserted at the camera port. The gallbladder was placed in the specimen retrieval pouch. The specimen retrieval pouch containing the gallbladder was brought out through the infraumbilical incision. The gallbladder was submitted as a specimen for study by the pathologist. The instrument ports were all removed. Carbon dioxide was removed from the peritoneal cavity by desufflation. The fascial layer of the infraumbilical incision was closed with a series of simple interrupted stitches using 0 Vicryl suture. The skin margins were then closed at all the incisions with skin carmelina. Sterile dressings and Band-Aids were applied to the incisions. The patient tolerated the operation well. The patient was transferred to the operating room to the recovery room in satisfactory condition. DELORES
[2017-05-06 12:32] VITALS: BP 139/71; RESP 16; TEMP 96.4; O2SAT 95
[2017-05-06] MEDS: NS 1,000 ML IV SCH (13:20)
--- NOTE | 2017-05-06 13:31 | Progress Note ---
DATE 05/06/2017 POSTOPERATIVE DAY #1 HISTORY The patient has been doing well. She is up in a chair in her room at this time. Abdominal pain is improved compared to preoperatively. She has been tolerating a clear liquid diet with toast and crackers since the time of her operation. The diet has been advanced. The patient is doing well overall. PHYSICAL EXAMINATION VITAL SIGNS: Temperature is 96.4 degrees oral. Pulse is 81. Respiratory rate is 16. Blood pressure is 139/71. Oxygen saturation is 95% on room air. ABDOMEN: Dressings are in place over the abdominal incisions. LABORATORY DATA White blood cell count is 9300. Hemoglobin is 12.3. Hematocrit is 39. Serum lipase is 142 today. Total bilirubin is 0.9. AST is 41. ALT is 55. Alkaline phosphatase is 75. IMPRESSION Doing well following multiport robotic laparoscopic cholecystectomy and needle biopsies of the liver on 05/05/2017. PLAN 1. Advance diet and activity as tolerated. 2. Continue sequential compression devices for deep venous thrombosis prophylaxis. MTDD
--- NOTE | 2017-05-06 15:08 | Discharge Instructions ---
Discharge Plan - Med Rec/Dispo Referrals/Follow Up: Walter Jaime MD [Physician] - (These call to arrange a Follow-up appointment with Dr. Jaime for next 05/12/17) Additional Instructions: Please schedule follow-up appointment with your primary care provider, Dr. Jackie Portillo in one week Prescriptions: New Ibuprofen [Motrin] 400 - 800 mg PO Q6H PRN tablet PRN Reason: pain Losartan [Cozaar] 100 mg PO HS tablet Oxycodone *Ir* [Roxicodone *Ir*] 5 - 10 mg PO Q3H PRN #20 tablet PRN Reason: Pain Continue Metformin HCl 500 mg PO BID #0 Potassium Chloride [Klor-Con M20] 20 meq PO DAILY PRN #0 PRN Reason: Prn Orders Hydralazine HCl 50 mg PO TID #0 Cholecalciferol [Vit. D-3] 1,000 unit PO DAILY #0 Furosemide 20 mg PO DAILY PRN #0 PRN Reason: Prn Orders Escitalopram Oxalate 5 mg PO DAILY CALCIUM CARBONATE Chewable [Tums] 1,000 mg PO Q2H PRN PRN Reason: Prn Orders Lansoprazole [Prevacid] 15 mg PO DAILY #0 Carvedilol 3.125 mg PO BID Discontinued Losartan Potassium 100 mg PO HS #0 tab Atorvastatin [Lipitor] 10 mg PO HS Discharge Instructions/Outpatient Orders: Final Provider Discharge Instructions Location: Determined By Patient - Disposition 01 Discharged Home, Self-Care
[2017-05-06 15:20] VITALS: PULSE 82
--- NOTE | 2017-05-06 15:31 | Discharge Summary ---
Discharge Information Date of admission: 05/05/17 14:37 <Justen Heaton - 05/06/17 16:57> 05/05/17 14:37 <Jailyn Bonilla V - 05/06/17 15:37> Anticipated date of discharge: 05/06/17 <Jailyn Bonilla V - 05/06/17 15:37> Attending Physician: Justen Heaton MD <Justen Heaton - 05/06/17 16:57> Justen Heaton MD <Jailyn Bonilla V - 05/06/17 15:37> Primary care physician: Jackie Portillo <Justen Heaton - 05/06/17 16:57> Jackie Portillo <Jailyn Bonilla V - 05/06/17 15:37> Consults: Dr Jaime <Jailyn Bonilla V - 05/06/17 15:37> - Discharge Diagnosis (1) Cholecystitis Status: Acute (2) Diabetes Status: Chronic (3) Hypertension Status: Chronic (4) GERD (gastroesophageal reflux disease) Status: Chronic (5) Dyslipidemia Status: Chronic (6) Depression Status: Chronic (7) Obesity (BMI 30.0-34.9) Status: Chronic <Justen Heaton - 05/06/17 16:57> (1) Cholecystitis Status: Acute (2) Diabetes Status: Chronic (3) Hypertension Status: Chronic (4) GERD (gastroesophageal reflux disease) Status: Chronic (5) Dyslipidemia Status: Chronic (6) Depression Status: Chronic (7) Obesity (BMI 30.0-34.9) Status: Chronic <Jailyn Bonilla V - 05/06/17 15:28> - Procedures Procedures: 05/05/17- Multiport robotic laparoscopic cholecystectomy and needle biopsies of the liver. Dr Jaime <Jailyn Bonilla V - 05/06/17 15:37> - Laboratory Labs: 05/06/17 04:26 05/06/17 04:26 <Justen Heaton - 05/06/17 16:57> 05/06/17 04:26 05/06/17 04:26 <Jailyn Bonilla V - 05/06/17 15:37> - Microbiology None <Jailyn Bonilla V - 05/06/17 15:37> - Radiology Radiology: 04/26 and, CT abdomen pelvis revealing acute cholecystitis with hepatic steatosis <Jailyn Bonilla V - 05/06/17 15:37> - Pathology none <Jailyn Bonilla V - 05/06/17 15:37> History of Present Illness HPI: Kristine Foreman is a very pleasant 66-year-old female who presented to [facility] for evaluation of epigastric abdominal pain. She reports that on 05/03 she was awakened by severe epigastric pain that was colicky in nature but had a continual ache. She was seen and evaluated in the ED on 05/03/17 and had relief from her pain after drinking a GI cocktail. She also reports that she underwent cataract surgery on 05/03/17 and following her surgery, she took pain medication. In retrospect, she now believes the improvement in her pain was partly related to her pain medication that she took following her surgery. She states that she felt fine yesterday, but started to have severe pain again today. She denies any fevers but admits to sweating when her pain was severe followed by chills. She also reports nausea without vomiting. She denies any chest pain, shortness of breath, radiation of the pain, dysuria, hematuria, diarrhea or constipation. Upon arrival to the ED, she was afebrile and noted to be significantly hypertensive, most likely secondary to her severe pain. Labs were obtained and revealed WBC 7.2, hemoglobin 14.1, platelets 243, sodium 138, potassium 4.1, BUN 19, SCr 0.7 and hyperglycemia with glucose 232. She has a known history of diabetes for which she takes metformin. Total bilirubin was elevated at 1.4. LFTs were within normal limits. Lipase was elevated at 716 and lactate was 1.5. CT abdomen/pelvis revealed acute cholecystitis and hepatic steatosis. Due to her acute cholecystitis, Dr. Rolon was consulted and she was admitted to surgical observation and Dr. Jaime was consulted for surgical evaluation and anticipated surgery. While in the ED, she received 1L NS and Ertapenem for empiric coverage of GI pathogens. On exam, she is seen immediately upon her arrival to her room, #[id number]. Her of 51 years is at the bedside. She is alert and orientated and in no apparent distress. She is noted to be slightly hard of hearing. 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 Lungs are clear to auscultation bilaterally. Abdomen is soft with hypoactive bowel sounds. No edema noted to lower extremities. <Jailyn Bonilla V - 05/06/17 15:37> Hospital Course This is a general summary of the patient's hospital course. For more details refer to the complete medical record. <Justen Heaton - 05/06/17 16:57> This is a general summary of the patient's hospital course. For more details refer to the complete medical record. <Jailyn Bonilla V - 05/06/17 15:37> Hospital course: 05/05/17 15:46 -Acute cholecystitis, present on admission. .Admit to hospitalist service under the care of Dr. Heaton. .Consult Dr. Jaime for surgical evaluation and expected cholecystectomy. .Keep patient NPO in anticipation of upcoming surgery. NS 75cc/hr for hydration. Monitor closely for fluid overload. .Labs on admission revealed elevated lipase at 716 and elevated total bilirubin at 1.4. Recheck CBC, CMP and lipase in AM to monitor trends. LFT within normal limits on admission. .Dilaudid as needed for pain control and zofran as needed for nausea/ vomiting. .Encourage incentive spriometry for pulmonary toileting. .CT abdomen/pelvis revealed acute cholecystitis adn hepatic steatosis. -Diabetes, type 2, chronic. .Will hold home metformin in anticipation of surgery. Monitor BGMs closely. Sliding scale insulin as indicated for hyperglycemia. .Currently patient is NPO. .Will check A1c in AM. -Hypertension, uncontrolled, chronic. .Continue home medications including lasartan, lasix, KCl and carvedilol for blood pressure control. .Monitor blood pressure closely and monitor telemetry closely. As patient is NPO, patient may require metoprolol IV if blood pressure remains elevated. -Dyslipidemia, chronic. .In light of current cholecystitis, will hold home atorvastatin. Monitor liver function tests closely. -GERD, chronic. .Continue home Prevacid and tums as needed. -Depression, chronic. .Continue home lexapro. -Obesity, chronic. Upon discharge, patient's care will be returned to her PCP. 6/30/Amalia Carmona tolerated the surgical procedure well under the care of Dr Jaime. Today she is feeling good with mild pain. She is eating and drinking without difficulty. LFTs are slighly elevated today however this is likely related to the trauma of the procedure and liver biopsy. In light of the elevated will hold her home Lipitor at time of discharge. She is instructed to follow-up with her primary care provider, Dr. Jackie Portillo in 1 week. Also advised to contact Dr. Jaime's office to arrange for follow-up next week postoperatively. This a brief summary of patient's hospitalization. For a detailed information, please refer to the chart. <Jailyn Bonilla V - 05/06/17 15:37> Time spent with patient: 25 - 35 minutes <Jailyn Bonilla V - 05/06/17 15:37> Discharge Plan - Med Rec/Dispo Referrals/Follow Up: Walter Jaime MD [Physician] - 05/12/17 11:15 am () <Justen Heaton - 05/06/17 16:57> [place] Instructions: Laparoscopic Cholecystectomy (DC) <Justen Heaton - 05/06/17 16:57> Additional Instructions: Please schedule follow-up appointment with your primary care provider, Dr. Jackie Portillo in one week <Justen Heaton - 16:57> Prescriptions: New Ibuprofen [Motrin] 400 - 800 mg PO Q6H PRN tablet PRN Reason: pain Losartan [Cozaar] 100 mg PO HS tablet Oxycodone *Ir* [Roxicodone *Ir*] 5 - 10 mg PO Q3H PRN #20 tablet PRN Reason: Pain Continue Metformin HCl 500 mg PO BID #0 Potassium Chloride [Klor-Con M20] 20 meq PO DAILY PRN #0 PRN Reason: Prn Orders Hydralazine HCl 50 mg PO TID #0 Cholecalciferol [Vit. D-3] 1,000 unit PO DAILY #0 Furosemide 20 mg PO DAILY PRN #0 PRN Reason: Prn Orders Escitalopram Oxalate 5 mg PO DAILY CALCIUM CARBONATE Chewable [Tums] 1,000 mg PO Q2H PRN PRN Reason: Prn Orders Lansoprazole [Prevacid] 15 mg PO DAILY #0 Carvedilol 3.125 mg PO BID Discontinued Losartan Potassium 100 mg PO HS #0 tab Atorvastatin [Lipitor] 10 mg PO HS <Justen Heaton - 05/06/17 16:57> Discharge Instructions/Outpatient Orders: Final Provider Discharge Instructions Location: Determined By Patient <Justen Heaton - 05/06/17 16:57> - Disposition 01 Discharged Home, Self-Care <Justen Heaton - 05/06/17 16:57> - Attestation Attestation Narrative: 05/06/17 16:52 Have independently interviewed and examined pt. Chart reviewed. Case discussed with my [employer]. Care plan developed with my supervision; agree with above. Doing well today. Does not right shoulder pain from CO2 used in abdomen during Sx. Not having ab pain or discomfort. Sx wounds not hurting. Eating well without upset stomach, nausea or ab pain. Passing flatus. Breathing well. No chest pain. No f/c. Lungs: clear bilaterally without crackles/wheezes/distress CV: regular AB: soft nt/nd MES: awake alert appropriate Gen: looks energetic and in no distress. Plan: Will discharge to home as detailed above. Encourage IS use at home. F/U with Dr Jaime for post op care. See orders for details. <Justen Heaton - 05/06/17 16:56>
== END 2017-05-06 16:16 | disposition home or self-care (01) ==
LOC: ED 09:28 → SRG 09:28
PROVIDERS: ADMIT Hospitalist; ATTEND Hospitalist